=== PATIENT | male | born 1945 | race Caucasian/White ===

== ENCOUNTER 2017-04-14 10:21 | Emergency (ER) | payer MEDICARE, OTHER ==
[~2017-04-14] VITALS: Ht 157.5 cm; Wt 56.8 kg
[2017-04-14] MEDS ORDERED: SODIUM CHLORIDE 0.9% 250 ML IRRIG SOLUTION BOTTLE IRRIG ONE (11:45)
[2017-04-14] MEDS ORDERED: PERTUSS(ACELL),DIPH,TET VAC/PF 0.5 ML VIAL IM ONE ×2 (11:45→17:30)
[2017-04-14 12:02] LABS: BASOPHILS % (AUTO) 0.1 % (0.0-2.0); EOSINOPHILS % (AUTO) 0 % (1.0-6.0); HEMATOCRIT 37.3 % (41-53); LYMPHOCYTES # (AUTO) 0.4 K/uL (1.0-4.8); LYMPHOCYTES % (AUTO) 7.9 % (22.0-44.0); MEAN CORPUSCULAR HEMOGLOBIN 31.8 pg (26.0-34.0); MEAN CORPUSCULAR HGB CONC 34.9 G/dL (31.0-37.0); MEAN CORPUSCULAR VOLUME 91 fL (80-100); MONOCYTES # (AUTO) 0.3 K/uL (0.1-1.0); MONOCYTES % (AUTO) 6.3 % (2.0-9.0); NEUTROPHILS # (AUTO) 3.8 K/uL (1.8-7.7); PLATELET COUNT (AUTO) 111 K/uL (150-450); RED BLOOD CELL COUNT(AUTO) 4.08 MIL/uL (4.50-5.90); RED CELL DISTRIBUTION WIDTH 14.2 % (11.5-14.5); WHITE BLOOD COUNT (AUTO) 4.4 K/uL (4.5-11.0)
[2017-04-14 12:04] LABS: NEUTROPHILS % (AUTO) 85.7 % (40.0-70.0)
[2017-04-14 12:16] LABS: ANION GAP 14 mmol/L (8-16); CALCIUM, TOTAL 9.1 mg/dL (8.8-10.5); CARBON DIOXIDE 22 mmol/L (22-29); CHLORIDE 103 mmol/L (98-107); CREATININE 1.03 mg/dL (0.60-1.30); GLOMERULAR FILTR. RATE CALC > 60 mL/min (>60); POTASSIUM 3.7 mmol/L (3.5-5.1); SODIUM SERUM 139 mmol/L (136-145); UREA NITROGEN, BLOOD 31 mg/dL (7-18)
[2017-04-14 12:21] LABS: ALANINE AMINOTRANSFERASE 71 U/L (12-78); ALBUMIN 3.3 g/dL (3.4-5.0); ASPARTATE AMINOTRANSFERASE 99 U/L (15-37); BILIRUBIN,TOTAL 0.6 mg/dL (0.1-1.0); TOTAL PROTEIN, SERUM 8.2 g/dL (6.4-8.2)
[2017-04-14] MEDS ORDERED: INSULIN REGULAR, HUMAN 100 UNITS/ML IVP ONE (13:45)
[2017-04-14] MEDS ORDERED: SODIUM CHLORIDE 0.9% 1,000 ML IV ONE (13:45)
[2017-04-14 13:52] LABS: GLUCOSE,POINT OF CARE 378 MG/DL (70-110)
[2017-04-14 14:47] LABS: APPEARANCE,URINE CLOUDY (CLEAR); GLUCOSE, URINE (UA) >=1000 mg/dL (NEGATIVE); KETONES,URINE NEGATIVE (NEGATIVE); PH,URINE 5.5 (5.0-8.0); PROTEIN,URINE SEE CONFIRM (NEGATIVE)
[2017-04-14 14:54] LABS: ADD UA MICROSCOPIC YES; LEUKOCYTE ESTERASE ,URINE LARGE (NEGATIVE); OCCULT BLOOD,URINE SMALL (NEGATIVE); SULFOSALICYLIC ACID,URINE 2+ (Negative)
[2017-04-14 14:55] LABS: RENAL EPITHELIAL CELLS,URINE Rare /LPF (None Seen); WBC,URINE 51-100 /HPF (0-5)
[2017-04-14 17:07] LABS: GLUCOSE,POINT OF CARE 170 MG/DL (70-110)
[2017-04-14] MEDS ORDERED: MUPIROCIN CALCIUM 2% 22 GM OINTMENT TP ONE (17:30)
[2017-04-14 18:25] VITALS: BP 146/83
== END 2017-04-14 19:22 | disposition home or self-care (01) ==
LOC: EMS 10:23
DX: S01.111A Laceration without foreign body of right eyelid and periocular area, initial encounter (principal); S00.83XA Contusion of other part of head, initial encounter; S80.212A Abrasion, left knee, initial encounter; S80.211A Abrasion, right knee, initial encounter; M17.0 Bilateral primary osteoarthritis of knee; T88.1XXA Other complications following immunization, not elsewhere classified, initial encounter; R73.9 Hyperglycemia, unspecified; Z59.0 Homelessness; W18.00XA Striking against unspecified object with subsequent fall, initial encounter; Y93.89 Activity, other specified; Y92.89 Other specified places as the place of occurrence of the external cause; Y99.8 Other external cause status
CPT/HCPCS: 36415; 70450; 72125; 73562; 80053; 80307; 81001; 82962; 85025; 87077; 87086; 87186; 90471; 90715; 93005; 96361; 96374; 99285; G0480; J1815; J7030

== ENCOUNTER 2017-04-21 16:26 | Emergency (ER) | payer MEDICARE, OTHER ==
[~2017-04-21] VITALS: Ht 157.5 cm; Wt 54.5 kg
[2017-04-21 17:28] LABS: GLUCOSE,POINT OF CARE 208 MG/DL (70-110)
[2017-04-21] MEDS ORDERED: PERTUSS(ACELL),DIPH,TET VAC/PF 0.5 ML VIAL IM ONE (20:15)
[2017-04-21] MEDS ORDERED: MAGNESIUM SULFATE 2 GM, MVI, ADULT NO.1 WITH VIT K 10 ML, THIAMINE HCL 100 MG, FOLIC AC... IV ONE ×5 (20:15)
[2017-04-21 20:37] LABS: BASOPHILS # (AUTO) 0.02 K/uL (0.00-0.20); BASOPHILS % (AUTO) 0.4 % (0.0-2.0); EOSINOPHILS % (AUTO) 3.88 % (1.0-6.0); HEMATOCRIT 36.6 % (41-53); HEMOGLOBIN 12.3 g/dL (13.5-17.5); LYMPHOCYTES # (AUTO) 2.3 K/uL (1.0-4.8); LYMPHOCYTES % (AUTO) 44.3 % (22.0-44.0); MEAN CORPUSCULAR HEMOGLOBIN 31.2 pg (26.0-34.0); MEAN CORPUSCULAR HGB CONC 33.6 G/dL (31.0-37.0); MEAN CORPUSCULAR VOLUME 93 fL (80-100); MONOCYTES # (AUTO) 0.6 K/uL (0.1-1.0); NEUTROPHILS # (AUTO) 2.1 K/uL (1.8-7.7); NEUTROPHILS % (AUTO) 40.4 % (40.0-70.0); PLATELET COUNT (AUTO) 147 K/uL (150-450); RED BLOOD CELL COUNT(AUTO) 3.94 MIL/uL (4.50-5.90); RED CELL DISTRIBUTION WIDTH 14.6 % (11.5-14.5)
[2017-04-21 20:58] LABS: ANION GAP 10 mmol/L (8-16); CARBON DIOXIDE 24 mmol/L (22-29); CHLORIDE 105 mmol/L (98-107); CREATININE 1.17 mg/dL (0.60-1.30); GLOMERULAR FILTR. RATE CALC > 60 mL/min (>60); GLUCOSE,RANDOM 276 mg/dL (70-110); POTASSIUM 3.9 mmol/L (3.5-5.1); SODIUM SERUM 139 mmol/L (136-145); UREA NITROGEN, BLOOD 26 mg/dL (7-18)
[2017-04-21 21:08] LABS: ALANINE AMINOTRANSFERASE 61 U/L (12-78); ALBUMIN 3.1 g/dL (3.4-5.0); ALKALINE PHOSPHATASE 111 U/L (46-116); ASPARTATE AMINOTRANSFERASE 57 U/L (15-37); BILIRUBIN,TOTAL 0.6 mg/dL (0.1-1.0); TOTAL PROTEIN, SERUM 7.9 g/dL (6.4-8.2)
[2017-04-21] MEDS ORDERED: CeFAZolin 1 GM/DEXTROSE 50 ML IV ONE (21:15)
[2017-04-21] MEDS ORDERED: BACITRACIN 0.9 GM PACKET OINTMENT TP ONE (21:15)
[2017-04-22 00:10] VITALS: BP 115/75
== END 2017-04-22 00:41 | disposition home or self-care (01) ==
LOC: EMS 16:27
DX: S80.212A Abrasion, left knee, initial encounter (principal); S80.211A Abrasion, right knee, initial encounter; L08.9 Local infection of the skin and subcutaneous tissue, unspecified; I10 Essential (primary) hypertension; M17.0 Bilateral primary osteoarthritis of knee; E11.9 Type 2 diabetes mellitus without complications; Z59.0 Homelessness; W05.0XXA Fall from non-moving wheelchair, initial encounter; Y93.89 Activity, other specified; Y92.89 Other specified places as the place of occurrence of the external cause; Y99.8 Other external cause status
CPT/HCPCS: 80053; 82962; 85025; 90471; 90715; 96365; 96366; 96368; 99285; J0690; J3411; J3475; J3490 ×2; J7030

== ENCOUNTER 2017-11-17 17:51 | Inpatient (IN) | payer MEDICARE, OTHER ==
[~2017-11-17] VITALS: Ht 157.5 cm; Wt 64.6 kg
[2017-11-17 19:22] VITALS: BP 120/73
[2017-11-17] MEDS ORDERED: ELVI1TAB3 PO (20:56)
[2017-11-17] MEDS ORDERED: RIFAX550 PO (20:56)
[2017-11-17] MEDS ORDERED: GABA-531 PO (20:56)
[2017-11-17] MEDS ORDERED: INSULIN LISPRO 100 UNITS/ML SQ PRN (21:00)
[2017-11-17] MEDS ORDERED: GLUCAGON,HUMAN RECOMBINANT 1 MG VIAL IM PRN (21:00)
[2017-11-17] MEDS ORDERED: DEXTROSE 50%-WATER 25 GM/50 ML SYG IVP PRN (21:15)
[2017-11-17] MEDS: RIFAXIMIN 550 MG TABLET PO SCH (22:00)
[2017-11-17 23:13] LABS: GLUCOMETER DEV NAME(LOC) 6N 1E; GLUCOSE,POINT OF CARE 298 MG/DL (70-110)
[2017-11-18 04:57] VITALS: BP 132/76
[2017-11-18] MEDS: INSULIN LISPRO 100 UNITS/ML SQ PRN ×4 (05:18→22:26)
[2017-11-18 06:03] LABS: GLUCOMETER DEV NAME(LOC) 6N 1E; GLUCOSE,POINT OF CARE 201 MG/DL (70-110)
[2017-11-18 07:40] VITALS: BP 101/58
[2017-11-18] MEDS: ELVITEG/COB/EMTRI/TENOF ALAFEN 150-150-200-10MG TABLET PO SCH (09:46)
[2017-11-18] MEDS: RIFAXIMIN 550 MG TABLET PO SCH ×2 (09:46→20:37)
[2017-11-18 11:20] VITALS: BP 128/71
[2017-11-18 11:36] LABS: BASOPHILS % (AUTO) 0.5 % (0.0-2.0); EOSINOPHILS % (AUTO) 2.4 % (1.0-6.0); HEMOGLOBIN 13.2 g/dL (13.5-17.5); LYMPHOCYTES # (AUTO) 1.7 K/uL (1.0-4.8); LYMPHOCYTES % (AUTO) 32.8 % (22.0-44.0); MEAN CORPUSCULAR HEMOGLOBIN 30.4 pg (26.0-34.0); MEAN CORPUSCULAR HGB CONC 34.8 G/dL (31.0-37.0); MEAN CORPUSCULAR VOLUME 87 fL (80-100); MONOCYTES # (AUTO) 0.5 K/uL (0.1-1.0); MONOCYTES % (AUTO) 10.2 % (2.0-9.0); NEUTROPHILS # (AUTO) 2.8 K/uL (1.8-7.7); NEUTROPHILS % (AUTO) 54.1 % (40.0-70.0); PLATELET COUNT (AUTO) 112 K/uL (150-450); RED BLOOD CELL COUNT(AUTO) 4.36 MIL/uL (4.50-5.90); RED CELL DISTRIBUTION WIDTH 16.6 % (11.5-14.5)
[2017-11-18 11:48] LABS: HEMOGLOBIN A1C 10.7 % (4.5-6.2)
[2017-11-18 12:01] LABS: ANION GAP 9 mmol/L (8-16); CALCIUM, TOTAL 8.6 mg/dL (8.8-10.5); CARBON DIOXIDE 21 mmol/L (22-29); CHLORIDE 102 mmol/L (98-107); GLOMERULAR FILTR. RATE CALC > 60 mL/min (>60); GLUCOSE,RANDOM 322 mg/dL (70-110); POTASSIUM 3.8 mmol/L (3.5-5.1); SODIUM SERUM 132 mmol/L (136-145); THYROID STIMULATING HORMONE 0.79 uIU/mL (0.36-3.74); UREA NITROGEN, BLOOD 30 mg/dL (7-18)
[2017-11-18 14:03] LABS: GLUCOMETER DEV NAME(LOC) 6N 2D; GLUCOSE,POINT OF CARE 312 MG/DL (70-110)
[2017-11-18 15:34] VITALS: BP 128/73
[2017-11-18 19:45] VITALS: BP 135/79
[2017-11-18 20:33] LABS: GLUCOMETER DEV NAME(LOC) 6N 2D; GLUCOSE,POINT OF CARE 261 MG/DL (70-110)
[2017-11-18] MEDS: ACETAMINOPHEN 325 MG TABLET PO PRN (23:02)
[2017-11-18 23:33] VITALS: BP 127/71
[2017-11-19 04:16] VITALS: BP 129/87
[2017-11-19 04:34] LABS: GLUCOMETER DEV NAME(LOC) 6N 1E; GLUCOSE,POINT OF CARE 245 MG/DL (70-110)
[2017-11-19 05:50] LABS: BASOPHILS % (AUTO) 0.4 % (0.0-2.0); EOSINOPHILS % (AUTO) 3.5 % (1.0-6.0); HEMATOCRIT 36.8 % (41-53); HEMOGLOBIN 13.1 g/dL (13.5-17.5); LYMPHOCYTES # (AUTO) 1.7 K/uL (1.0-4.8); LYMPHOCYTES % (AUTO) 43.2 % (22.0-44.0); MEAN CORPUSCULAR HEMOGLOBIN 30.7 pg (26.0-34.0); MEAN CORPUSCULAR HGB CONC 35.6 G/dL (31.0-37.0); MEAN CORPUSCULAR VOLUME 86 fL (80-100); MONOCYTES # (AUTO) 0.4 K/uL (0.1-1.0); MONOCYTES % (AUTO) 9.6 % (2.0-9.0); NEUTROPHILS # (AUTO) 1.7 K/uL (1.8-7.7); NEUTROPHILS % (AUTO) 43.3 % (40.0-70.0); PLATELET COUNT (AUTO) 115 K/uL (150-450); RED BLOOD CELL COUNT(AUTO) 4.27 MIL/uL (4.50-5.90); RED CELL DISTRIBUTION WIDTH 16.9 % (11.5-14.5)
[2017-11-19 06:04] LABS: ANION GAP 10 mmol/L (8-16); CALCIUM, TOTAL 8.7 mg/dL (8.8-10.5); CARBON DIOXIDE 21 mmol/L (22-29); CHLORIDE 104 mmol/L (98-107); CREATININE 0.92 mg/dL (0.60-1.30); GLOMERULAR FILTR. RATE CALC > 60 mL/min (>60); GLUCOSE,RANDOM 256 mg/dL (70-110); POTASSIUM 3.4 mmol/L (3.5-5.1); SODIUM SERUM 135 mmol/L (136-145); UREA NITROGEN, BLOOD 25 mg/dL (7-18)
[2017-11-19] MEDS: INSULIN LISPRO 100 UNITS/ML SQ PRN ×4 (06:06→21:08)
[2017-11-19 07:48] VITALS: BP 157/101
[2017-11-19] MEDS: ELVITEG/COB/EMTRI/TENOF ALAFEN 150-150-200-10MG TABLET PO SCH (08:38)
[2017-11-19] MEDS: RIFAXIMIN 550 MG TABLET PO SCH ×2 (08:38→21:03)
[2017-11-19 08:43] LABS: GLUCOMETER DEV NAME(LOC) 6N 1E; GLUCOSE,POINT OF CARE 247 MG/DL (70-110)
[2017-11-19] MEDS ORDERED: ACETAMINOPHEN 325 MG TABLET PO PRN (11:00)
[2017-11-19] MEDS: ACETAMINOPHEN 325 MG TABLET PO PRN ×2 (11:30→21:06)
[2017-11-19 11:45] VITALS: BP 156/82
[2017-11-19 13:39] LABS: GLUCOMETER DEV NAME(LOC) 6N 2D; GLUCOSE,POINT OF CARE 331 MG/DL (70-110)
[2017-11-19] MEDS ORDERED: MAGNESIUM SULFATE 2 GM/WATER 50 ML IV PRN (14:00)
[2017-11-19] MEDS ORDERED: MAGNESIUM SULFATE 4 GM/WATER 100 ML IV PRN (14:00)
[2017-11-19] MEDS ORDERED: POTASSIUM CHL 10 MEQ/WATER 50 ML IV PRN (14:30)
[2017-11-19] MEDS ORDERED: POTASSIUM CHLORIDE 20 MEQ ER TABLET PO PRN (14:30)
[2017-11-19] MEDS: MAGNESIUM OXIDE 400 MG TABLET PO PRN ×2 (14:48→22:51)
[2017-11-19] MEDS: GABAPENTIN 300 MG CAPSULE PO SCH ×2 (14:48→21:03)
[2017-11-19 15:48] VITALS: BP 153/90
[2017-11-19 17:59] LABS: GLUCOMETER DEV NAME(LOC) 6N 2D; GLUCOSE,POINT OF CARE 310 MG/DL (70-110)
[2017-11-19 19:25] VITALS: BP 132/82
[2017-11-19 21:53] LABS: GLUCOMETER DEV NAME(LOC) 6N 2D; GLUCOSE,POINT OF CARE 246 MG/DL (70-110)
[2017-11-20] MEDS: MAGNESIUM OXIDE 400 MG TABLET PO PRN (02:38)
[2017-11-20] MEDS: GABAPENTIN 300 MG CAPSULE PO SCH ×3 (08:32→19:51)
[2017-11-20] MEDS: RIFAXIMIN 550 MG TABLET PO SCH ×2 (08:32→19:51)
[2017-11-20] MEDS: ELVITEG/COB/EMTRI/TENOF ALAFEN 150-150-200-10MG TABLET PO SCH (09:28)
[2017-11-20 11:29] LABS: GLUCOMETER DEV NAME(LOC) 6N 2D; GLUCOSE,POINT OF CARE 302 MG/DL (70-110)
[2017-11-20] MEDS: INSULIN LISPRO 100 UNITS/ML SQ PRN ×3 (11:39→20:00)
[2017-11-20 11:51] VITALS: BP 136/75
[2017-11-20 16:40] VITALS: BP 150/66
[2017-11-20 18:09] LABS: GLUCOMETER DEV NAME(LOC) 6N 1E; GLUCOSE,POINT OF CARE 221 MG/DL (70-110)
[2017-11-20 19:27] VITALS: BP 125/69
[2017-11-20 21:48] LABS: GLUCOMETER DEV NAME(LOC) 6N 2D; GLUCOSE,POINT OF CARE 258 MG/DL (70-110)
[2017-11-21 04:00] VITALS: BP 134/72
[2017-11-21 07:20] VITALS: BP 100/62
[2017-11-21] MEDS: RIFAXIMIN 550 MG TABLET PO SCH ×2 (08:13→19:53)
[2017-11-21] MEDS: ELVITEG/COB/EMTRI/TENOF ALAFEN 150-150-200-10MG TABLET PO SCH (08:13)
[2017-11-21] MEDS: GABAPENTIN 300 MG CAPSULE PO SCH ×3 (08:13→19:53)
[2017-11-21 09:05] LABS: BASOPHILS % (AUTO) 0.5 % (0.0-2.0); EOSINOPHILS % (AUTO) 1.8 % (1.0-6.0); HEMATOCRIT 38.2 % (41-53); HEMOGLOBIN 13.3 g/dL (13.5-17.5); LYMPHOCYTES # (AUTO) 2.1 K/uL (1.0-4.8); LYMPHOCYTES % (AUTO) 30.3 % (22.0-44.0); MEAN CORPUSCULAR HEMOGLOBIN 30.5 pg (26.0-34.0); MEAN CORPUSCULAR HGB CONC 34.8 G/dL (31.0-37.0); MEAN CORPUSCULAR VOLUME 88 fL (80-100); MONOCYTES # (AUTO) 0.7 K/uL (0.1-1.0); MONOCYTES % (AUTO) 9.6 % (2.0-9.0); NEUTROPHILS # (AUTO) 3.9 K/uL (1.8-7.7); NEUTROPHILS % (AUTO) 57.8 % (40.0-70.0); PLATELET COUNT (AUTO) 122 K/uL (150-450); RED BLOOD CELL COUNT(AUTO) 4.36 MIL/uL (4.50-5.90); RED CELL DISTRIBUTION WIDTH 17.3 % (11.5-14.5)
[2017-11-21 09:26] LABS: ANION GAP 13 mmol/L (8-16); CALCIUM, TOTAL 8.7 mg/dL (8.8-10.5); CARBON DIOXIDE 20 mmol/L (22-29); CHLORIDE 101 mmol/L (98-107); CREATININE 1.14 mg/dL (0.60-1.30); GLOMERULAR FILTR. RATE CALC > 60 mL/min (>60); GLUCOSE,RANDOM 351 mg/dL (70-110); POTASSIUM 4.2 mmol/L (3.5-5.1); SODIUM SERUM 134 mmol/L (136-145); UREA NITROGEN, BLOOD 29 mg/dL (7-18)
[2017-11-21 11:00] VITALS: BP 122/74
[2017-11-21] MEDS: INSULIN LISPRO 100 UNITS/ML SQ PRN ×4 (13:17→20:17)
[2017-11-21 15:10] VITALS: BP 133/75
[2017-11-21 19:17] VITALS: BP 115/77
[2017-11-21 19:39] LABS: GLUCOMETER DEV NAME(LOC) 6N 1E; GLUCOSE,POINT OF CARE 353 MG/DL (70-110)
[2017-11-21 19:39] LABS: GLUCOMETER DEV NAME(LOC) 6N 2D; GLUCOSE,POINT OF CARE 253 MG/DL (70-110)
[2017-11-21] MEDS: ACETAMINOPHEN 325 MG TABLET PO PRN (19:53)
[2017-11-21 22:49] LABS: GLUCOMETER DEV NAME(LOC) 6N 2D; GLUCOSE,POINT OF CARE 247 MG/DL (70-110)
[2017-11-22 00:06] VITALS: BP 107/63
[2017-11-22 03:30] VITALS: BP 116/70
[2017-11-22] MEDS: INSULIN LISPRO 100 UNITS/ML SQ PRN ×2 (05:51→11:59)
[2017-11-22 07:03] LABS: GLUCOMETER DEV NAME(LOC) 6N 2D; GLUCOSE,POINT OF CARE 220 MG/DL (70-110)
[2017-11-22] MEDS ORDERED: LACTOBACILLUS ACIDOPHILUS/BULGARICUS GRANULES PACKET PO SCH (09:00)
[2017-11-22] MEDS: GABAPENTIN 300 MG CAPSULE PO SCH (09:24)
[2017-11-22] MEDS: RIFAXIMIN 550 MG TABLET PO SCH (09:24)
[2017-11-22] MEDS: ELVITEG/COB/EMTRI/TENOF ALAFEN 150-150-200-10MG TABLET PO SCH (09:24)
[2017-11-22 15:34] LABS: GLUCOMETER DEV NAME(LOC) 6N 1E; GLUCOSE,POINT OF CARE 310 MG/DL (70-110)
== END 2017-11-22 15:10 | disposition home or self-care (01) | DRG 639 ==
LOC: 6N 18:53
PROVIDERS: ADMIT Internal Medicine; ATTEND Internal Medicine
DX: E11.65 Type 2 diabetes mellitus with hyperglycemia (principal); I10 Essential (primary) hypertension; M17.0 Bilateral primary osteoarthritis of knee; Z59.0 Homelessness; Z79.899 Other long term (current) drug therapy
CPT/HCPCS: 83036; 83735; 84132; 84443